=== PATIENT | female | born 1960 | race Caucasian/White ===

== ENCOUNTER 2022-08-18 08:01 | Day surgery (SDC) | payer MEDICARE ==
[2022-08-11 15:28] LABS: BASOPHILS # (AUTO) 0.1 X10'3 (0-0.2); BASOPHILS % (AUTO) 1.2 % (0-1); EOSINOPHILS # (AUTO) 0.2 X10'3 (0-0.9); EOSINOPHILS % (AUTO) 2.7 % (0-6); LYMPHOCYTES # (AUTO) 1.9 X10'3 (1.1-4.8); LYMPHOCYTES % (AUTO) 26.8 % (21-51); MEAN CORPUSCULAR HEMOGLOBIN 31.9 PG (27.0-31.0); MEAN CORPUSCULAR HGB CONC 33.3 g/dL (33.0-36.5); MEAN CORPUSCULAR VOLUME 95.7 FL (78-98); MEAN PLATELET VOLUME 8.9 FL (7.4-10.4); MONOCYTES # (AUTO) 0.6 X10'3 (0-0.9); MONOCYTES % (AUTO) 7.8 % (2-12); NEUTROPHILS # (AUTO) 4.3 X10'3 (1.8-7.7); NEUTROPHILS % (AUTO) 61.5 % (42-75); PRE OP HEMATOCRIT 40.4 % (35.0-45.0); PRE OP HEMOGLOBIN 13.5 g/dL (12.0-16.0); PRE OP PLATELET COUNT 201 X10'3 (140-440); RED BLOOD COUNT 4.22 X10'6 (4.20-5.60); RED CELL DISTRIBUTION WIDTH 13.9 % (11.5-14.5)
[2022-08-11 15:29] LABS: CLARITY,URINE SLIGHTLY CLOUDY (Clear); COLOR,URINE YELLOW (Yellow); GLUCOSE, URINE NEGATIVE (Neg); KETONES,URINE TRACE mg/dl (Neg); LEUKOCYTE ESTERASE ,URINE NEGATIVE (Neg); NITRITES, URINE NEGATIVE (Neg); OCCULT BLOOD,URINE NEGATIVE (Neg); PROTEIN,URINE NEGATIVE (Neg); UROBILINOGEN,URINE 0.2 E.U/dL (0.2-1.0)
[2022-08-11 15:49] LABS: ALBUMIN 3.7 G/DL (3.4-5.0); ALBUMIN/GLOBULIN RATIO 1.3 (1.1-1.5); ALKALINE PHOSPHATASE 61 IU/L (46-116); BLOOD UREA NITROGEN 13 MG/DL (7-18); BUN/CREATININE RATIO 13.7 (6.6-38.0); CALCIUM 8.9 MG/DL (8.5-10.1); CHLORIDE 107 MMOL/L (99-107); CREATININE 0.95 MG/DL (0.40-0.90); PRE OP ALT 18 U/L (30-65); PRE OP ANION GAP 7 (8-16); PRE OP AST 15 U/L (10-37); PRE OP BILIRUB, TOTAL 0.2 MG/DL (0.0-1.0); PRE OP GLUCOSE 116 MG/DL (70-104); PRE OP POTASSIUM 3.9 MMOL/L (3.4-5.1); PRE OP SODIUM 142 MMOL/L (135-145); TOTAL CARBON DIOXIDE 27.9 MMOL/L (24-32); TOTAL PROTEIN 6.6 G/DL (6.4-8.2); eGFR 60 ML/MIN
[2022-08-11 16:40] LABS: UA COLLECTION TYPE NON-SPECIFIED
[2022-08-11 16:42] LABS: SQUAMOUS EPITHELIAL CELL,UR MANY /LPF (FEW)
[2022-08-11 16:43] LABS: BACTERIA,URINE 1+ /HPF (Neg); MUCUS STRANDS NONE SEEN /LPF (Neg)
[2022-08-11 16:44] LABS: WBC,URINE 0-4 /HPF (0-4)
[2022-08-11 16:46] LABS: TRANSITIONAL EPI CELLS,URINE FEW /HPF
[~2022-08-18] VITALS: Ht 165.1 cm; Wt 81.6 kg
[~2022-08-18 08:01] MED LIST: ALPR-624 PO; CARI350T27 PO; DULO60CA65 PO; ESTR1PAT82 TOP; OXYC1TAB17 PO; PROG100C11 PO; ceFOXitin 2GM-NS 100mL ADDvant 100 ML IV ONE; famotidine 20mg tablet PO ONE; ringers solution, lacted 1,000 ML IV SCH
[2022-08-18 08:57] VITALS: BP 137/78
[2022-08-18] MEDS ORDERED: diazepam 5mg tablet PO ONE ×2 (09:00→11:25)
[2022-08-18] MEDS ORDERED: proCHLORperazine 10 MG/2 ml inj IV PRN (10:10)
[2022-08-18] MEDS ORDERED: ringers solution, lacted 1,000 ML IV SCH (10:10)
[2022-08-18] MEDS ORDERED: morphine 4 MG/ML inj SYRINge IV PRN (10:10)
[2022-08-18] MEDS ORDERED: ondansetron/PF 4mg/2ml inj IV PRN (10:10)
[2022-08-18] MEDS ORDERED: morphine 2 MG/ML inj. syringe IV PRN (10:10)
[2022-08-18] MEDS ORDERED: meperidine/PF 25mg/ml syringe IV PRN ×3 (10:10)
[2022-08-18] MEDS ORDERED: BUPIVAcaine 0.5% inj/PF 30 ML ONE (10:17)
[2022-08-18] MEDS ORDERED: sevoflurane 250ml liquid IH ONE (11:48)
[2022-08-18] MEDS ORDERED: midazolam 1 mg/ML 2ml injection ONE (11:58)
[2022-08-18] MEDS ORDERED: fentaNYL /PF 50mcg/ml 5ml ampule ONE (11:59)
[2022-08-18] MEDS ORDERED: rocuronium 10mg/ml inj IV ONE (12:14)
[2022-08-18] MEDS ORDERED: propofol inj 20 ML IV ONE (12:14)
[2022-08-18] MEDS ORDERED: dexamethasone sod phosphate 4mg/ml inj. ONE (12:55)
[2022-08-18] MEDS ORDERED: glycopyrrolate 0.2mg/ml inj ONE (12:58)
[2022-08-18] MEDS ORDERED: neostigmine methylsulfate 1 MG/ML 10ml vial ONE (12:58)
[2022-08-18] MEDS ORDERED: ondansetron/PF 4mg/2ml inj ONE (12:58)
[2022-08-18 13:07] VITALS: BP 126/86
--- NOTE | 2022-08-18 13:07 | NUR ---
Received from OR via [facility], accompanied by Anesthesiologist and report given by Anesthesiologist. PATIENT WAKING UP, NO S/S OF BLEEDING. PT COMPLAINS OF MILD TO MODERATE PAIN, V/S WNL, 20G TO RUE, PT IS DROWSY. DR WRAY STATES SHE HAS CHRONIC PAIN.
[2022-08-18 13:40] VITALS: BP 129/74
--- NOTE | 2022-08-18 13:45 | NUR ---
PT MEDICATED FOR PAIN WITH GOOD RELIEF. PT ASSISTED GETTING DRESSED, PT COMPLAINS OF TIGHTNESS IN ABDOMEN, INCISION SITES CHECK, NO BLEEDING OR ISSUES, ABD SOFT TO PALPATION. PT INSTRUCTED ON HOW TO SPLINT ABDOMEN WHEN COUGHING
[2022-08-18 13:50] VITALS: BP 132/78
[2022-08-18 14:00] VITALS: BP 145/87
--- NOTE | 2022-08-18 14:05 | NUR ---
PT MOTHER WAITING AT FRONT [employer] [address]. PT TAKEN VIA WHEELCHAIR AND DISCHARGED INTO MOTHERS CARE. PT VERBALIZED UNDERSTANDING OF DISCHARGE INSTRUCTIONS. INSTRUCTIONS ALSO GIVEN TO MOTHER. 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 BOTH PARTIES VERBALIZED UNDERSTANDING
[2022-08-18 14:07] VITALS: BP 143/82
== END 2022-08-18 14:05 | disposition home or self-care (01) ==
LOC: PAS 08:01
PROVIDERS: ATTEND Surgery
DX: K80.10 Calculus of gallbladder with chronic cholecystitis without obstruction (principal); N73.6 Female pelvic peritoneal adhesions (postinfective); M19.90 Unspecified osteoarthritis, unspecified site; F32.A Depression, unspecified; F41.9 Anxiety disorder, unspecified; F43.10 Post-traumatic stress disorder, unspecified; G89.29 Other chronic pain; J44.9 Chronic obstructive pulmonary disease, unspecified; F17.210 Nicotine dependence, cigarettes, uncomplicated; Z88.5 Allergy status to narcotic agent; Z88.8 Allergy status to other drugs, medicaments and biological substances; Z86.16 Personal history of COVID-19; Z98.890 Other specified postprocedural states; Z90.710 Acquired absence of both cervix and uterus; Z86.19 Personal history of other infectious and parasitic diseases; Z79.899 Other long term (current) drug therapy; Z80.1 Family history of malignant neoplasm of trachea, bronchus and lung
CPT/HCPCS: 36415; 47562; 80053; 81001; 82948; 85025; 88304; 93005; J0694; J1100; J2175; J2250; J2405; J2704; J2710; J3010; J3490; J7030; J7120; S0020; Z7506; Z7508; Z7512; A4215; A4618; A7000